=== PATIENT | male | born 1985 | race Caucasian/White ===

== ENCOUNTER 2018-03-22 13:44 | Emergency (ER) | payer OTHER | END 2018-03-22 16:34 | disposition home or self-care (01) | LOC: M ED 13:44 | DX: M54.9 Dorsalgia, unspecified (principal); M51.87 Other intervertebral disc disorders, lumbosacral region; M51.26 Other intervertebral disc displacement, lumbar region; Z72.0 Tobacco use | CPT/HCPCS: 72148 ==

== ENCOUNTER → 2018-09-09 | Outpatient (REF) | payer OTHER ==
[~2018-09-09] MED LIST: IBUP1TAB7 PO
[2018-09-09 16:53] LABS: INR 0.99; PROTHROMBIN TIME 13.2 SECONDS (12.1-14.4)
[2018-09-09 16:54] LABS: PARTIAL THROMBOPLASTIN TIME 27.2 SECONDS (25.4-37.6)
== END ==
LOC: M LABDRAW1 15:40
PROVIDERS: ATTEND Physician Assistant
DX: Z01.812 Encounter for preprocedural laboratory examination (principal)